=== PATIENT | male | born 1940 | race Caucasian/White ===

== ENCOUNTER 2020-05-15 15:01 | Outpatient (REF) | payer MEDICARE, SELFPAY ==
[2020-05-15 16:35] LABS: Estimated Average Glucose 134 mg/dL; Hemoglobin A1c % 6.3 %
[2020-05-15 17:09] LABS: Alanine Aminotransferase 14 U/L (0-40); Albumin Level 4.2 g/dL (3.5-5.0); Alkaline Phosphatase 62 U/L (39-117); Aspartate Amino Transferase 12 U/L (5-37); Bilirubin Direct 0.2 mg/dL (0.0-0.5); Bilirubin Total 0.4 mg/dL (0.0-1.0); Cholesterol 142 mg/dL; Glucose Fasting 117 mg/dL (60-99); HDL Cholesterol 42 mg/dL; LDL Cholesterol Calculated 67 mg/dl; Total Protein 7.2 g/dL (6.5-8.0); Triglycerides 165 mg/dL
[2020-05-15 17:29] LABS: Reflex LDLD? No
== END 2020-05-15 15:02 | disposition home or self-care (01) ==
LOC: HO.HMGCLDS 15:01
PROVIDERS: PCP Internal Medicine; Visit Provider Internal Medicine
DX: E11.9 Type 2 diabetes mellitus without complications (principal); D50.9 Iron deficiency anemia, unspecified; E55.9 Vitamin D deficiency, unspecified
CPT/HCPCS: 80061; 80076; 82947; 83036

== ENCOUNTER 2021-03-06 12:29 | Outpatient (REF) | payer MEDICARE, SELFPAY ==
[2021-03-06 13:48] LABS: MANUAL DIFF FLAG NO
[2021-03-06 13:51] LABS: Appearance Urine CLEAR; Color Urine YELLOW; Glucose Urine UA NEG (NEG); Leukocyte Esterase Urine NEG (NEG); Nitrite Urine NEG (NEG); PH 6.5 (5.0-8.0); Specific Gravity - Urine 1.015 (1.005-1.025); Urine Blood NEG (NEG); Urine Ketones NEG (NEG); Urine Protein TRACE MG/DL (NEG-TRACE)
[2021-03-06 13:58] LABS: Basophils Absolute Auto 0.1 X10*3/uL (0.0-0.2); Basophils Percent Auto 0.9 % (0-2); Eosinophils Absolute Auto 0.3 X10*3/uL (0.0-0.4); Eosinophils Percent Auto 4.8 % (0-4); Hematocrit 36.6 % (42-52); Hemoglobin 11.8 g/dl (14.0-18.0); Imm Gran Abs Auto 0.02 X10*3/uL (0.00-0.03); Imm Gran Pct Auto 0.3 % (0.0-0.4); Lymphocytes Absolute Auto 1.6 X10*3/uL (1.2-4.9); Lymphocytes Percent Auto 27.4 % (20-40); Mean Corpuscular HGB Conc 32.2 g/dl (31.0-36.0); Mean Corpuscular Hemoglobin 31.4 pg (27.0-33.0); Mean Corpuscular Volume 97.3 fL (80-98); Mean Platelet Volume 11.6 fL (9.4-12.4); Monocytes Absolute Auto 0.4 X10*3/uL (0.1-1.2); Monocytes Percent Auto 7.5 % (2-11); Neutrophils Absolute Auto 3.5 X10*3/uL (2.0-8.3); Neutrophils Percent Auto 59.1 % (45-73); Platelet Count 204 X10*3/uL (160-400); Red Blood Count 3.76 X10*6/uL (4.60-5.80); Red Cell Distribution Width 14.1 % (11.0-16.0); White Blood Count 5.9 X10*3/uL (4.8-10.8)
[2021-03-06 14:21] LABS: Alanine Aminotransferase 13 U/L (0-40); Albumin Level 4.2 g/dL (3.5-5.0); Alkaline Phosphatase 72 U/L (39-117); Anion Gap 14 (12-20); Aspartate Amino Transferase 13 U/L (5-37); Bilirubin Total 0.5 mg/dL (0.0-1.0); Blood Urea Nitrogen 12 mg/dL (9-16); Calcium 9.7 mg/dL (8.4-10.2); Carbon Dioxide 26 mmol/L (22-29); Chloride 106 mmol/L (96-108); Cholesterol 141 mg/dL; Estimated Average Glucose 140 mg/dL; Estimated Glomerular Filt Rate > 60; Glucose Fasting 145 mg/dL (60-99); HDL Cholesterol 41 mg/dL; Hemoglobin A1c % 6.5 %; Iron 57 mcg/dL (45-160); LDL Cholesterol Calculated 78 mg/dl; Percent Iron Saturation 15 % (15-50); Potassium 5.3 mmol/L (3.3-5.1); Sodium 141 mmol/L (135-145); Total Iron Binding Capacity 384 mcg/dL (228-428); Total Protein 7.1 g/dL (6.5-8.0); Triglycerides 112 mg/dL; Unsaturated Iron Binding 327 ug/dL
[2021-03-06 14:27] LABS: Creatinine Urine 67.77 mg/dL; Microalbum/Creatinine Ratio Ur 166.7 ug/mg cr
[2021-03-06 14:45] LABS: PSA,Total (Free>4and<10) 1.48 ng/mL (0.00-4.00); Vitamin D 25-OH Total 51.6 ng/mL (>30)
[2021-03-06 14:55] LABS: Folate 12.4 ng/mL (> or = 4.0); Vitamin B12 742 pg/mL (200-900)
== END 2021-03-06 12:30 | disposition home or self-care (01) ==
LOC: HO.HMGCLDS 12:29
PROVIDERS: PCP Internal Medicine; Visit Provider Internal Medicine
DX: Z00.00 Encounter for general adult medical examination without abnormal findings (principal); Z12.5 Encounter for screening for malignant neoplasm of prostate; E53.8 Deficiency of other specified B group vitamins; E11.9 Type 2 diabetes mellitus without complications; I10 Essential (primary) hypertension; E55.9 Vitamin D deficiency, unspecified; E78.00 Pure hypercholesterolemia, unspecified; D50.9 Iron deficiency anemia, unspecified
CPT/HCPCS: 36415; 80053; 80061; 81003; 82043; 82306; 82607; 82746; 83036; 83540; 84153; 85025

== ENCOUNTER 2021-03-08 10:24 | Outpatient (REF) | payer MEDICARE, SELFPAY ==
[2021-03-08 10:59] LABS: Potassium 4.9 mmol/L (3.3-5.1)
== END 2021-03-08 10:25 | disposition home or self-care (01) ==
LOC: HO.LNP 10:24
PROVIDERS: Visit Provider Internal Medicine
DX: E87.5 Hyperkalemia (principal)
CPT/HCPCS: 84132

== ENCOUNTER 2021-08-09 15:25 | Outpatient (REF) | payer MEDICARE, SELFPAY ==
[2021-08-09 16:02] LABS: Thyroid Stimulating Hormone 3.84 uIU/mL (0.32-4.0)
== END 2021-08-09 15:26 | disposition home or self-care (01) ==
LOC: HO.LNP 15:25
PROVIDERS: Visit Provider Internal Medicine
DX: R00.1 Bradycardia, unspecified (principal)
CPT/HCPCS: 84443

== ENCOUNTER 2021-09-03 12:42 | Outpatient (REF) | payer MEDICARE, SELFPAY ==
[2021-09-03 13:44] LABS: MANUAL DIFF FLAG NO
[2021-09-03 13:57] LABS: Basophils Absolute Auto 0.1 X10*3/uL (0.0-0.2); Basophils Percent Auto 0.9 % (0-2); Eosinophils Absolute Auto 0.1 X10*3/uL (0.0-0.4); Eosinophils Percent Auto 2.1 % (0-4); Hematocrit 39.2 % (42.0-52.0); Hemoglobin 12.6 g/dl (14.0-18.0); Imm Gran Abs Auto 0.03 X10*3/uL (0.00-0.03); Imm Gran Pct Auto 0.5 % (0.0-0.4); Lymphocytes Absolute Auto 1.4 X10*3/uL (1.2-4.9); Lymphocytes Percent Auto 24.2 % (20-40); Mean Corpuscular HGB Conc 32.1 g/dl (31.0-36.0); Mean Corpuscular Hemoglobin 31.5 pg (27.0-33.0); Mean Platelet Volume 11.7 fL (9.4-12.4); Monocytes Absolute Auto 0.4 X10*3/uL (0.1-1.2); Monocytes Percent Auto 7.2 % (2-11); Neutrophils Absolute Auto 3.8 x10*3/uL (2.0-8.3); Neutrophils Percent Auto 65.1 % (45-73); Platelet Count 201 X10*3/uL (160-400); Red Cell Distribution Width 14.3 % (11.0-16.0); White Blood Count 5.8 X10*3/uL (4.8-10.8)
[2021-09-03 14:10] LABS: Alanine Aminotransferase 15 U/L (0-40); Albumin Level 4.1 g/dL (3.5-5.0); Alkaline Phosphatase 65 U/L (39-117); Anion Gap 15 (12-20); Aspartate Amino Transferase 14 U/L (5-37); Bilirubin Total 0.8 mg/dL (0.0-1.0); Blood Urea Nitrogen 12 mg/dL (9-16); Calcium 9.8 mg/dL (8.4-10.2); Carbon Dioxide 25 mmol/L (22-29); Chloride 106 mmol/L (96-108); Estimated Glomerular Filt Rate > 60; Glucose Random 134 mg/dL (60-115); Magnesium 1.5 mg/dL (1.6-2.6); Potassium 5.2 mmol/L (3.3-5.1); Sodium 141 mmol/L (135-145)
== END 2021-09-03 12:43 | disposition home or self-care (01) ==
LOC: HO.HMGCLDS 12:42
PROVIDERS: PCP Internal Medicine; Visit Provider Internal Medicine
DX: I10 Essential (primary) hypertension (principal)
CPT/HCPCS: 36415; 80053; 83735; 85025

== ENCOUNTER 2021-11-01 11:29 | Outpatient (REF) | payer MEDICARE, SELFPAY ==
[2021-11-01 15:36] LABS: Magnesium 1.8 mg/dL (1.6-2.6)
== END 2021-11-01 11:30 | disposition home or self-care (01) ==
LOC: HO.HMGCLDS 11:29
PROVIDERS: Visit Provider Internal Medicine
DX: R79.0 Abnormal level of blood mineral (principal)
CPT/HCPCS: 36415; 83735

== ENCOUNTER → 2021-12-17 15:04 | Outpatient (BNVA) | payer MEDICARE, SELFPAY | PROVIDERS: PCP Internal Medicine; Referring Provider Internal Medicine; Visit Provider Internal Medicine Cardiovascular Disease | DX: I25.10 Atherosclerotic heart disease of native coronary artery without angina pectoris (principal); I10 Essential (primary) hypertension; R00.1 Bradycardia, unspecified; R07.9 Chest pain, unspecified; Z79.899 Other long term (current) drug therapy | CPT/HCPCS: 99202 ==

== ENCOUNTER → 2022-03-07 11:37 | Outpatient (REF) | payer MEDICARE, SELFPAY ==
--- NOTE | 2022-03-07 13:05 | CA_ITS ---
Transthoracic Echocardiogram Patient (Last, First, Middle): Noé Cancino E Gender: Male Date of : 1940 Age: 81 Procedure Date: 03/07/2022 Procedure Type: Transthoracic Echocardiogram Location: OP Height: 167.64 cm Weight: 86.18 kg BSA: 1.96 m2 Heart Rate: 77 bpm BP: 136 / 80 mmHg Automatic Pinsetter Mechanic: SB Referring MD: Jamey Rich MD Symptoms: I25.10 - Atherosclerotic heart disease of [place] coronary artery without... Study Quality: Adequate ECG Rhythm: Sinus Conclusions: - Normal left ventricular cavity size. The left ventricular systolic function is hyperdynamic. The visually estimated ejection fraction is >70%. - E/E prime ratio is between 8 and 15 consistent with indeterminate filling pressures. There is moderate septal asymmetric hypertrophy. Low global longitudinal strain at -14%. - Normal right ventricular cavity size and systolic function. - There is mild dilatation of the ascending aorta measuring 3.50 cm. Findings Left Ventricle Normal left ventricular cavity size. The left ventricular systolic function is hyperdynamic. The visually estimated ejection fraction is >70%. There is no evidence of regional wall motion abnormalities. Abnormal diastolic function is noted. Spectral Doppler is indicative of an impaired relaxation filling pattern. E/E prime ratio is between 8 and 15 consistent with indeterminate filling pressures. There is moderate septal asymmetric hypertrophy. Low global longitudinal strain at -14%. Right Ventricle Normal right ventricular cavity size and systolic function. Atria The left atrium is normal in size. The atrial septum has a dumbell appearance. The right atrium is normal in size. Aortic Valve Normal aortic valve structure and function. There is no aortic valve stenosis. There is no aortic valve regurgitation. Mitral Valve There is mild mitral annular calcification. There is no mitral valve regurgitation. There is no mitral valve stenosis. Pulmonic Valve The pulmonic valve is likely normal. Tricuspid Valve Normal tricuspid valve structure and function. There is trace tricuspid valve regurgitation. Tricuspid regurgitation envelope is inadequate for calculation of right ventricular systolic pressure. Normal right atrial pressure. Great Vessels There is mild dilatation of the ascending aorta measuring 3.50 cm. The visualized portions of the pulmonary artery and branches are normal. Venous The inferior vena cava is normal in size and collapses greater than 50% with inspiration. Pericardium/Pleural Prominent epicardial adipose tissue noted. There is no evidence of pericardial effusion. Prior Study Comparison No prior study available for comparison. Measurements 2D Linear Measurements IVSd: 1.44 0.6-0.9/0.6-1.0 cm LVIDd: 4.13 3.9-5.3/4.2-5.9 cm LVIDd Index: 2.11 2.4-3.2/2.2-3.1 cm/m2 LVIDs: 2.47 2.0-3.6 cm LVPWd: 0.72 0.7-1.1 cm LA Diam: 4.10 2.7-3.8/3.0-4.0 cm LAIDs Index: 2.09 1.5-2.3 cm/m2 LV Mass: 185.30 67-162/88-224 g LV Mass Index: 94.54 43-95/49-115 g/m2 LVOT Diam: 2.00 3.0+(-)1.3 cm 2D Systolic Function EF 4C: 58.70 >55% Mitral Valve MV Pk E: 0.58 MV PK A: 0.73 MV Decel Time: 179.00 E/A: 0.80 E'Lateral: 7.51 E'Medial: 5.11 E/E' Med: 11.40 E/E' Lat: 7.80 PHT: 52.00 MVA PHT: 4.23 Decel [place]: 3.26 Aortic Valve AoV Pk Garry: 1.43 AoV Mn Garry: 0.92 AoV VTI: 0.26 AoV Pk Grad: 8.00 Aov Mn Grad: 4.00 MEGAN Cont.VTI: 2.46 LVOT LVOT Pk Garry: 1.14 LVOT Mn Garry: 0.77 LVOT VTI: 0.20 LVOT Pk Grad: 5.00 LVOT Mn Grad: 3.00 LVOT Diam: 2.00 LVOT Area: 3.14 Diastolic Function MV Pk E: 0.58 MV Pk A: 0.73 E/A: 0.80 E'Medial: 5.11 E/E' Med: 11.40 E' Laterial: 7.51 E/E' Lat: 7.80 Right Ventricle TAPSE (mm): 14.70 TVS' Garry: 14.30 Tricuspid Valve RA Press: 3.00 Great Vessels Aorta Sinus of Valsalva: 3.30 2.0-3.5 cm Ao Asc: 3.50 2.1-3.4 cm Pulmonary Valve PV Pk Garry: 1.22 Peak PV Grad: 6.00 Updated in Other Vendor System with Status of Final Shaun Parker MD electronically signed on 03/10/2022 1:22:43 PM with status of Final
[2022-03-07 13:57] LABS: MANUAL DIFF FLAG NO
[2022-03-07 14:07] LABS: Basophils Absolute Auto 0.1 X10*3/uL (0.0-0.2); Basophils Percent Auto 0.9 % (0-2); Eosinophils Absolute Auto 0.2 X10*3/uL (0.0-0.4); Hematocrit 39.3 % (42.0-52.0); Hemoglobin 12.9 g/dl (14.0-18.0); Imm Gran Abs Auto 0.02 X10*3/uL (0.00-0.03); Imm Gran Pct Auto 0.3 % (0.0-0.4); Lymphocytes Absolute Auto 1.5 X10*3/uL (1.2-4.9); Lymphocytes Percent Auto 22.2 % (20-40); Mean Corpuscular HGB Conc 32.8 g/dl (31.0-36.0); Mean Corpuscular Volume 94.5 fL (80.0-98.0); Mean Platelet Volume 11.1 fL (9.4-12.4); Monocytes Absolute Auto 0.5 X10*3/uL (0.1-1.2); Monocytes Percent Auto 6.9 % (2-11); Neutrophils Absolute Auto 4.5 x10*3/uL (2.0-8.3); Neutrophils Percent Auto 66.7 % (45-73); Platelet Count 255 X10*3/uL (160-400); Red Blood Count 4.16 X10*6/uL (4.60-5.80); White Blood Count 6.7 X10*3/uL (4.8-10.8)
[2022-03-07 14:07] LABS: Appearance Urine Clear; Color Urine Yellow; Glucose Urine UA Negative (Negative); Leukocyte Esterase Urine Negative (Negative); Nitrite Urine Negative (Negative); PH 5.5 (5.0-9.0); Specific Gravity - Urine 1.015 (1.005-1.025); UMIC TRIGGER UA YES; Urine Blood Negative (Negative); Urine Ketones Negative (Negative); Urine Protein 30 (1+) mg/dL (Neg-Trace)
[2022-03-07 14:10] LABS: Bacteria Urine None Seen (None Seen); Hyaline Casts Urine 0-2 /LPF (0-2); RBC Urine 0-2 /HPF (0-2); Squamous Epithelial Cell Urine 0-2 /HPF (0-2); WBC Urine 0-5 /HPF (0-5)
[2022-03-07 14:16] LABS: Estimated Average Glucose 154 mg/dL
[2022-03-07 14:24] LABS: Alanine Aminotransferase 14 U/L (0-40); Albumin Level 4.3 g/dL (3.5-5.0); Alkaline Phosphatase 81 U/L (39-117); Anion Gap 15 (12-20); Aspartate Amino Transferase 13 U/L (5-37); Bilirubin Total 0.5 mg/dL (0.0-1.0); Blood Urea Nitrogen 18 mg/dL (9-16); Calcium 9.3 mg/dL (8.4-10.2); Carbon Dioxide 22 mmol/L (22-29); Chloride 106 mmol/L (96-108); Cholesterol 141 mg/dL; Estimated Glomerular Filt Rate > 60; Glucose Fasting 160 mg/dL (60-99); HDL Cholesterol 49 mg/dL; Iron 56 mcg/dL (45-160); LDL Cholesterol Calculated 75 mg/dl; Percent Iron Saturation 13 % (15-50); Potassium 4.4 mmol/L (3.3-5.1); Sodium 139 mmol/L (135-145); Total Iron Binding Capacity 439 mcg/dL (228-428); Total Protein 7.3 g/dL (6.5-8.0); Triglycerides 89 mg/dL; Unsaturated Iron Binding 383 ug/dL
[2022-03-07 14:30] LABS: Creatinine Urine 98.33 mg/dL; Microalbum/Creatinine Ratio Ur 171.8 ug/mg cr
[2022-03-07 14:46] LABS: PSA,Total (Free>4and<10) 1.28 ng/mL (0.00-4.00); Vitamin D 25-OH Total 51.5 ng/mL (>30)
[2022-03-07 14:51] LABS: Folate 11.2 ng/mL (> or = 4.0); Vitamin B12 893 pg/mL (200-900)
== END ==
LOC: HO.CARD 11:37
PROVIDERS: Absent Provider Internal Medicine; PCP Internal Medicine; Visit Provider Internal Medicine Cardiovascular Disease
DX: Z00.00 Encounter for general adult medical examination without abnormal findings (principal); Z12.5 Encounter for screening for malignant neoplasm of prostate; I25.10 Atherosclerotic heart disease of native coronary artery without angina pectoris; I10 Essential (primary) hypertension; E11.9 Type 2 diabetes mellitus without complications; E55.9 Vitamin D deficiency, unspecified; E78.00 Pure hypercholesterolemia, unspecified; D50.9 Iron deficiency anemia, unspecified; E53.8 Deficiency of other specified B group vitamins
CPT/HCPCS: 36415; 80053; 80061; 81001; 82043; 82306; 82607; 82746; 83036; 83540; 84153; 85025; 93306; 93356

== ENCOUNTER → 2022-04-02 15:03 | Outpatient (REF) | payer MEDICARE, SELFPAY ==
--- NOTE | 2022-04-02 15:06 | HM_ITS ---
Conclusion: 1. Patient was monitored for total period of 2 days and 23 hours 2. Baseline was normal sinus rhythm with first-degree AV block with average heart rate of 63 beats per minute 3. Frequent bradycardia with heart rate below 60 beats per minute 31% of the time 4. No significant pauses noted 5. Second-degree AV block noted, on reviewing the strip appears to be Mobitz type 1 second-degree AV block with intermittent 2:1 av block all suggestive of AV adelfo block 6. Rare ectopy noted 7. No patient reported events MTDD
== END ==
LOC: HO.CARD 15:03
PROVIDERS: PCP Internal Medicine; Visit Provider Internal Medicine Cardiovascular Disease
DX: R00.1 Bradycardia, unspecified (principal)
CPT/HCPCS: 93242

== ENCOUNTER → 2022-04-15 15:37 | Outpatient (BNVA) | payer MEDICARE, SELFPAY | PROVIDERS: PCP Internal Medicine; Visit Provider Internal Medicine Cardiovascular Disease | DX: I25.10 Atherosclerotic heart disease of native coronary artery without angina pectoris (principal); R00.1 Bradycardia, unspecified | CPT/HCPCS: 99212 ==

== ENCOUNTER 2022-06-13 11:42 | Outpatient (REF) | payer MEDICARE, SELFPAY ==
[2022-06-13 14:48] LABS: Estimated Average Glucose 166 mg/dL; Hemoglobin A1c % 7.4 %
[2022-06-13 14:54] LABS: Magnesium 1.9 mg/dL (1.6-2.6)
== END 2022-06-13 11:43 | disposition home or self-care (01) ==
LOC: HO.HMGCLDS 11:42
PROVIDERS: Visit Provider Internal Medicine
DX: E11.9 Type 2 diabetes mellitus without complications (principal); E53.8 Deficiency of other specified B group vitamins
CPT/HCPCS: 36415; 83036; 83735

== ENCOUNTER 2022-12-18 15:08 | Outpatient (AMB) | payer MEDICARE, SELFPAY ==
--- NOTE | 2022-12-18 15:15 | A.OFFVIS_ITS ---
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 He says when he over exerts himself in the yd he does get anginal symptoms and he takes sublingual nitroglycerin with immediate symptom relief. He does not CT symptoms at rest. There is no crescendo pattern to his symptoms. He can manage and live his life without any restricting anginal symptoms. He denies any lightheadedness, syncope. No tiredness. No heart failure symptoms. Takes all his medications. [facility] Medical History CAD (coronary artery disease) Diabetes HTN (hypertension) Hyperlipidemia Surgical History Hx of heart bypass surgery S/P CABG x 2 Family History Father Stroke Mother No problems noted. Social History Patient Tobacco Use Status: Never used Tobacco Review of Systems Const Denies chills, Denies fatigue, Denies fever(s), Denies frequent falls, Denies weakness, Denies weight gain and Denies weight loss ENT Denies dizziness Card Denies chest pain, Denies leg edema, Denies lightheadedness, Denies palpitations, Denies dyspnea, Denies dyspnea on exertion, Denies orthopnea and Denies other (loss of consciousness) Resp Denies cough, Denies dyspnea and Denies dyspnea on exertion GI Denies hematochezia and Denies change in stool character Musc Denies abnormal gait, Denies muscle weakness, Denies numbness, Denies radiating pain into limb and Denies tingling Neuro Denies Abnormal speech present, Denies abnormal gait, Denies dizziness, Denies frequent falls, Denies numbness, Denies tingling and Denies weakness Endo Denies fatigue and Denies palpitations Physical Exam Vital Signs: Last Vital Signs Pulse 65 12/18/22 15:16 BP 130/76 12/18/22 15:16 BMI result Body Mass Index 28.2 Const General: cooperative, comfortable, no acute distress, well developed, alert, awake and well groomed Nutritional Appearance: well nourished and overweight Orientation/consciousness: patient oriented x3 Limitations: no limitations Neck Neck: Yes trachea midline, Yes supple and Yes no JVD Chest Chest palpation & inspection: other (Well-healed sternotomy scar) Resp Effort & Inspection: normal respiratory effort Auscultation: clear to auscultation bilaterally Cardio Jugular venous distension: no JVD Palpation: normal PMI Rate: regular rate Rhythm: abnormal rhythm with ectopic beats Heart sounds: S1 normal heart sound present, S2 normal heart sound present, no click, no gallops, Murmur heart sound present systolic and no rubs GI Auscultation: normal bowel sounds Neuro General: patient oriented x3 and no focal motor deficits Speech: No Abnormal speech present Extrem General: Yes no clubbing, cyanosis or edema Office Procedures EKG Details: EKG shows normal sinus rhythm first-degree AV block with nonspecific ST changes [id number], Complete Assessment & Plan Assessment & Plan (1) CAD (coronary artery disease): Code(s): I25.10 - Atherosclerotic heart disease of [place] coronary artery without angina pectoris Plan: CAD with remote coronary artery bypass grafting. He is currently having symptoms of exertional angina when he over does it. Recommend exercise myocardial perfusion imaging. Discuss the need for it. However he wants to consider it. Continue current medical therapy. Continue amlodipine as the up antianginal agent. Continue low-dose aspirin therapy. Currently on moderate dose statin therapy. Target goal LDL less than 70 mg/dL. He continues to use sublingual nitroglycerin as needed. Advised to call me with worsening symptoms. Advised to seek emergency care for symptoms at rest at all on relieving. 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 No symptoms related to it. No interventions are pacing therapy required. Avoid rate lowering medications. He is advised to call me with any worsening symptoms. Will follow up in the clinic in 1 year's time, sooner p.r.n.. Thank you for allowing me to partake in his care Coding Level of Care Code Est Pt Level 4 (27139) Diagnoses CAD (coronary artery disease) I25.10 Bradycardia R00.1 CPT Codes EKG - CPT: 42663-[id number], Complete ([id number])
[2022-12-18 15:16] VITALS: BP 130/76; PULSE 65; BMI 28.2
== END 2022-12-18 15:54 | disposition home or self-care (01) ==
PROVIDERS: PCP Internal Medicine; Referring Provider Internal Medicine; Visit Provider Internal Medicine Cardiovascular Disease
DX: I25.10 Atherosclerotic heart disease of native coronary artery without angina pectoris (principal); R00.1 Bradycardia, unspecified
CPT/HCPCS: 93010; 99214

== ENCOUNTER → 2022-12-18 15:08 | Outpatient (BNVA) | payer MEDICARE, SELFPAY | PROVIDERS: PCP Internal Medicine; Referring Provider Internal Medicine; Visit Provider Internal Medicine Cardiovascular Disease | DX: I25.10 Atherosclerotic heart disease of native coronary artery without angina pectoris (principal); R00.1 Bradycardia, unspecified | CPT/HCPCS: 93005; 99212 ==

== ENCOUNTER 2023-05-07 10:54 | Outpatient (REF) | payer MEDICARE, SELFPAY ==
[2023-05-07 11:00] LABS: MANUAL DIFF FLAG NO
[2023-05-07 12:11] LABS: Basophils Absolute Auto 0.1 X10*3/uL (0.0-0.2); Eosinophils Absolute Auto 0.3 X10*3/uL (0.0-0.4); Hematocrit 40.1 % (42.0-52.0); Hemoglobin 12.9 g/dl (14.0-18.0); Imm Gran Abs Auto 0.02 X10*3/uL (0.00-0.03); Imm Gran Pct Auto 0.3 % (0.0-0.4); Lymphocytes Absolute Auto 1.8 X10*3/uL (1.2-4.9); Lymphocytes Percent Auto 24.7 % (20-40); Mean Corpuscular HGB Conc 32.2 g/dl (31.0-36.0); Mean Corpuscular Hemoglobin 30.6 pg (27.0-33.0); Mean Corpuscular Volume 95.2 fL (80.0-98.0); Mean Platelet Volume 11.7 fL (9.4-12.4); Monocytes Absolute Auto 0.6 X10*3/uL (0.1-1.2); Monocytes Percent Auto 8.6 % (2-11); Neutrophils Absolute Auto 4.4 x10*3/uL (2.0-8.3); Neutrophils Percent Auto 61.4 % (45-73); Platelet Count 239 X10*3/uL (160-400); Red Blood Count 4.21 X10*6/uL (4.60-5.80); Red Cell Distribution Width 14.6 % (11.0-16.0); White Blood Count 7.2 X10*3/uL (4.8-10.8)
[2023-05-07 12:35] LABS: Cholesterol 131 mg/dL (<200); HDL Cholesterol 46 mg/dL (>40); LDL Cholesterol Calculated 61 mg/dL (<100); Triglycerides 121 mg/dL (<150)
[2023-05-07 12:42] LABS: Creatinine Urine 55.29 mg/dL; Microalbum/Creatinine Ratio Ur 273.1 ug/mg cr (<30)
[2023-05-07 12:46] LABS: Reflex LDLD? No
[2023-05-07 12:49] LABS: Appearance Urine Clear; Color Urine Yellow; Glucose Urine UA Negative (Negative); Leukocyte Esterase Urine Negative (Negative); Nitrite Urine Negative (Negative); UMIC TRIGGER UACC YES; Urine Blood Negative (Negative); Urine Ketones Negative (Negative); Urine Protein 30 (1+) mg/dL (Neg-Trace)
[2023-05-07 12:56] LABS: Alanine Aminotransferase 9 U/L (0-40); Alkaline Phosphatase 76 U/L (39-117); Anion Gap 15 (12-20); Aspartate Amino Transferase 14 U/L (5-37); Bacteria Urine None Seen (None Seen); Bilirubin Direct 0.2 mg/dL (0.0-0.5); Bilirubin Total 0.5 mg/dL (0.0-1.0); Blood Urea Nitrogen 13 mg/dL (9-16); Calcium 9.5 mg/dL (8.4-10.2); Carbon Dioxide 25 mmol/L (22-29); Chloride 106 mmol/L (96-108); Estimated Glomerular Filt Rate 60; Glucose Random 147 mg/dL (60-115); Hyaline Casts Urine 0-2 /LPF (0-2); Iron 52 mcg/dL (45-160); PSA,Total (Free>4and<10) 1.61 ng/mL (0.00-4.00); Percent Iron Saturation 16 % (15-50); Potassium 4.6 mmol/L (3.3-5.1); RBC Urine 0-2 /HPF (0-2); Sodium 141 mmol/L (135-145); Squamous Epithelial Cell Urine 0-2 /HPF (0-2); Total Iron Binding Capacity 329 mcg/dL (228-428); Total Protein 7.5 g/dL (6.5-8.0); Unsaturated Iron Binding 277 ug/dL; WBC Urine 0-5 /HPF (0-5)
[2023-05-07 13:13] LABS: Vitamin D 25-OH Total 65.1 ng/mL (>30)
== END 2023-05-07 10:55 | disposition home or self-care (01) ==
LOC: HO.LNP 10:54
PROVIDERS: Visit Provider Internal Medicine
DX: E11.9 Type 2 diabetes mellitus without complications (principal); I10 Essential (primary) hypertension; E55.9 Vitamin D deficiency, unspecified; E83.42 Hypomagnesemia; E78.00 Pure hypercholesterolemia, unspecified; D50.9 Iron deficiency anemia, unspecified; Z12.5 Encounter for screening for malignant neoplasm of prostate
CPT/HCPCS: 80053; 80061; 81001; 82043; 82248; 82306; 82570; 83540; 83735; 84153; 85025

== ENCOUNTER 2023-11-17 09:35 | Outpatient (REF) | payer MEDICARE, SELFPAY ==
[2023-11-17 13:32] LABS: Estimated Average Glucose 143 mg/dL; Hemoglobin A1c % 6.6 % (<6.0)
[2023-11-17 13:48] LABS: Alanine Aminotransferase 12 U/L (0-40); Albumin Level 4.1 g/dL (3.5-5.0); Alkaline Phosphatase 77 U/L (39-117); Aspartate Amino Transferase 14 U/L (5-37); Bilirubin Direct 0.2 mg/dL (0.0-0.5); Bilirubin Total 0.6 mg/dL (0.0-1.0); Cholesterol 129 mg/dL (<200); Glucose Fasting 136 mg/dL (60-99); HDL Cholesterol 46 mg/dL (>40); LDL Cholesterol Calculated 62 mg/dL (<100); Total Protein 7.6 g/dL (6.5-8.0); Triglycerides 109 mg/dL (<150)
[2023-11-17 14:48] LABS: Reflex LDLD? No
== END 2023-11-17 09:36 | disposition home or self-care (01) ==
LOC: HO.HMGCLDS 09:35
PROVIDERS: PCP Internal Medicine; Visit Provider Internal Medicine
DX: E11.9 Type 2 diabetes mellitus without complications (principal); E78.00 Pure hypercholesterolemia, unspecified
CPT/HCPCS: 36415; 80061; 80076; 82947; 83036

== ENCOUNTER 2023-11-26 14:40 | Outpatient (REF) | payer MEDICARE, SELFPAY ==
[2023-11-26 17:02] LABS: Vitamin B12 1247 pg/mL (200-900)
== END 2023-11-26 14:41 | disposition home or self-care (01) ==
LOC: HO.HMGCLDS 14:40
PROVIDERS: PCP Internal Medicine; Visit Provider Internal Medicine
DX: E53.8 Deficiency of other specified B group vitamins (principal)
CPT/HCPCS: 36415; 82607; 82746

== ENCOUNTER 2024-01-05 14:41 | Outpatient (AMB) | payer MEDICARE, SELFPAY ==
[2024-01-05 14:44] VITALS: BP 146/60; PULSE 49; BMI 27.6
--- NOTE | 2024-01-05 14:44 | A.OFFVIS_ITS ---
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 He does not get angina with his regular day-to-day activity. Takes all his medications. Recently said his blood pressure is elevated his amlodipine was increase to 10 mg. His last LDL 62 mg/dL. Denies any heart failure symptoms. Denies any lightheadedness, syncope. Denies any prolonged palpitation irregular heartbeat. Taking all his medications regularly. [facility] Medical History Hyperlipidemia Diabetes HTN (hypertension) CAD (coronary artery disease) Surgical History S/P CABG x 2 Hx of heart bypass surgery Family History Father Stroke Mother No problems noted. Social History Patient Tobacco Use Status: Never used Tobacco Review of Systems Const Denies chills, Denies fatigue, Denies fever(s), Denies frequent falls, Denies weakness, Denies weight gain and Denies weight loss ENT Denies dizziness Card Denies chest pain, Denies leg edema, Denies lightheadedness, Denies palpitations, Denies dyspnea and Denies dyspnea on exertion Resp Denies cough, Denies dyspnea and Denies dyspnea on exertion GI Denies hematochezia Musc Denies abnormal gait, Denies muscle weakness, Denies numbness, Denies radiating pain into limb and Denies tingling Neuro Denies Abnormal speech present, Denies abnormal gait, Denies dizziness, Denies frequent falls, Denies numbness, Denies tingling and Denies weakness Endo Denies fatigue and Denies palpitations Physical Exam Vital Signs: Last Vital Signs Pulse 49 L 01/05/24 14:44 BP 146/60 H 01/05/24 14:44 BMI result Body Mass Index 27.6 Const General: cooperative, comfortable, no acute distress, well developed, alert, awake and well groomed Nutritional Appearance: well nourished and overweight Orientation/consciousness: patient oriented x3 Limitations: no limitations Neck Neck: Yes trachea midline, Yes supple and Yes no JVD Chest Chest palpation & inspection: other (Well-healed sternotomy scar) Resp Effort & Inspection: normal respiratory effort Auscultation: clear to auscultation bilaterally Cardio Jugular venous distension: no JVD Palpation: normal PMI Rate: regular rate Rhythm: abnormal rhythm with ectopic beats Heart sounds: S1 normal heart sound present, S2 normal heart sound present, no click, no gallops, Murmur heart sound present systolic and no rubs GI Auscultation: normal bowel sounds Neuro General: patient oriented x3 and no focal motor deficits Speech: No Abnormal speech present Extrem General: Yes no clubbing, cyanosis or edema Office Procedures EKG Details: EKG shows sinus rhythm with Mobitz type 1 second-degree AV block with variable [place] interval. [id number], Complete Assessment & Plan Assessment & Plan (1) Bradycardia: Code(s): R00.1 - Bradycardia, unspecified Category: Medical Plan: Bradycardia with Mobitz type 1 second-degree AV block suggestive of AV adelfo level of abnormality. Current point time he has no symptoms and no indication for pacing therapy. Avoid rate lowering medications and him. (2) CAD (coronary artery disease): Code(s): I25.10 - Atherosclerotic heart disease of [place] coronary artery without angina pectoris Category: Medical Plan: CAD with remote coronary artery bypass grafting with current symptoms of angina which have been stable over the last year. He only gets them with heavy work. Very rarely has to use sublingual nitroglycerin. Currently taking amlodipine as an antianginal therapy. Doing well from that perspective. His LDL is well optimized on current statin therapy. Continue low-dose aspirin therapy. Continue maintain activity level as tolerated. Advised to call me with worsening symptoms. (3) HTN (hypertension): Code(s): I10 - Essential (primary) hypertension Category: Medical Plan: Hypertension which is well optimized currently on amlodipine therapy after re measurement. Advised to monitor blood pressure intermittently at home. Low- salt diet was discussed. Stress mitigation strategies was discussed. Continue current amlodipine therapy. Will follow up in the clinic in 1 year's time, sooner p.r.n.. Thank you for allowing me to partake in his care Coding Level of Care Code Est Pt Level 4 (55591) Diagnoses Bradycardia R00.1 CAD (coronary artery disease) I25.10 HTN (hypertension) I10 CPT Codes EKG - CPT: 09412-[id number], Complete ([id number])
[2024-01-05 15:00] VITALS: BP 126/50
== END 2024-01-05 15:02 | disposition home or self-care (01) ==
PROVIDERS: PCP Internal Medicine; Visit Provider Internal Medicine Cardiovascular Disease
DX: R00.1 Bradycardia, unspecified (principal); I25.10 Atherosclerotic heart disease of native coronary artery without angina pectoris; I10 Essential (primary) hypertension
CPT/HCPCS: 93010; 99214

== ENCOUNTER → 2024-01-05 14:41 | Outpatient (BNVA) | payer MEDICARE, SELFPAY | PROVIDERS: PCP Internal Medicine; Visit Provider Internal Medicine Cardiovascular Disease | DX: R00.1 Bradycardia, unspecified (principal); I25.10 Atherosclerotic heart disease of native coronary artery without angina pectoris; I10 Essential (primary) hypertension; R94.31 Abnormal electrocardiogram [ECG] [EKG]; I44.1 Atrioventricular block, second degree | CPT/HCPCS: 93005; 99212 ==

== ENCOUNTER 2024-01-22 14:48 | Outpatient (REF) | payer MEDICARE, SELFPAY ==
[2024-01-22 17:00] LABS: Free T4 (Free Thyroxine) 0.81 ng/dL (0.71-1.85); Thyroid Stimulating Hormone 3.33 uIU/mL (0.32-4.0)
[2024-01-24 04:13] LABS: DHEA Sulfate 62 mcg/dL (3-225); Triiodothyronine T3 Free 2.8 pg/mL (2.3-4.2)
[2024-01-27 20:03] LABS: Testosterone, Free 36.1 pg/mL (30.0-135.0); Testosterone, Total 435 ng/dL (250-1100)
== END 2024-01-22 14:49 | disposition home or self-care (01) ==
LOC: HO.HMGCLDS 14:48
PROVIDERS: PCP Internal Medicine; Visit Provider Family Medicine
DX: E29.1 Testicular hypofunction (principal); R53.83 Other fatigue
CPT/HCPCS: 36415; 82627; 84402; 84403; 84439; 84443; 84481

== ENCOUNTER 2024-05-05 09:28 | Outpatient (REF) | payer MEDICARE, SELFPAY ==
[2024-05-05 13:29] LABS: MANUAL DIFF FLAG NO
[2024-05-05 13:40] LABS: Appearance Urine Cloudy; Color Urine Yellow; Glucose Urine UA Negative (Negative); Leukocyte Esterase Urine Negative (Negative); Nitrite Urine Negative (Negative); UMIC TRIGGER UACC YES; Urine Blood Negative (Negative); Urine Ketones Negative (Negative); Urine Protein 100 (2+) mg/dL (Neg-Trace)
[2024-05-05 13:44] LABS: Basophils Absolute Auto 0.1 X10*3/uL (0.0-0.2); Eosinophils Absolute Auto 0.3 X10*3/uL (0.0-0.4); Eosinophils Percent Auto 3.9 % (0-4); Hematocrit 36.2 % (42.0-52.0); Hemoglobin 11.7 g/dl (14.0-18.0); Imm Gran Abs Auto 0.03 X10*3/uL (0.00-0.03); Imm Gran Pct Auto 0.4 % (0.0-0.4); Lymphocytes Absolute Auto 1.4 X10*3/uL (1.2-4.9); Lymphocytes Percent Auto 19.9 % (20-40); Mean Corpuscular HGB Conc 32.3 g/dl (31.0-36.0); Mean Corpuscular Volume 92.8 fL (80.0-98.0); Mean Platelet Volume 11.2 fL (9.4-12.4); Monocytes Absolute Auto 0.5 X10*3/uL (0.1-1.2); Monocytes Percent Auto 7.3 % (2-11); Neutrophils Absolute Auto 4.7 x10*3/uL (2.0-8.3); Neutrophils Percent Auto 67.5 % (45-73); Platelet Count 253 X10*3/uL (160-400); Red Cell Distribution Width 15.2 % (11.0-16.0)
[2024-05-05 13:48] LABS: Bacteria Urine None Seen (None Seen); Hyaline Casts Urine 0-2 /LPF (0-2); RBC Urine 0-2 /HPF (0-2); Squamous Epithelial Cell Urine 0-2 /HPF (0-2); WBC Urine 0-5 /HPF (0-5)
[2024-05-05 13:50] LABS: Estimated Average Glucose 146 mg/dL; Hemoglobin A1C 150.7117 umol/L; Hemoglobin A1c % 6.7 % (<6.0); Total Hemoglobin (HGBA1C) 3012.1795 umol/L
[2024-05-05 14:03] LABS: Alanine Aminotransferase 10 U/L (0-40); Albumin Level 3.7 g/dL (3.5-5.0); Alkaline Phosphatase 69 U/L (39-117); Anion Gap 10 (12-20); Aspartate Amino Transferase 17 U/L (5-37); Bilirubin Direct 0.2 mg/dL (0.0-0.5); Bilirubin Total 0.5 mg/dL (0.0-1.0); Blood Urea Nitrogen 15 mg/dL (9-16); Calcium 9.1 mg/dL (8.4-10.2); Carbon Dioxide 26 mmol/L (22-29); Chloride 110 mmol/L (96-108); Cholesterol 118 mg/dL (<200); Estimated Glomerular Filt Rate > 60; Glucose Fasting 141 mg/dL (60-99); HDL Cholesterol 46 mg/dL (>40); Iron 61 mcg/dL (45-160); LDL Cholesterol Calculated 56 mg/dL (<100); Magnesium 1.8 mg/dL (1.6-2.6); Percent Iron Saturation 21 % (15-50); Potassium 4.6 mmol/L (3.3-5.1); Sodium 141 mmol/L (135-145); Total Iron Binding Capacity 292 mcg/dL (228-428); Total Protein 7.3 g/dL (6.5-8.0); Triglycerides 84 mg/dL (<150); Unsaturated Iron Binding 231 ug/dL
[2024-05-05 14:12] LABS: PSA,Total (Free>4and<10) 2.39 ng/mL (0.00-4.00)
[2024-05-05 14:19] LABS: Vitamin D 25-OH Total 45.6 ng/mL (>30)
[2024-05-05 14:28] LABS: Folate 6.1 ng/mL (> or = 4.0); Vitamin B12 875 pg/mL (200-900)
[2024-05-05 14:32] LABS: Creatinine Urine 96.62 mg/dL
[2024-05-05 14:44] LABS: Microalbum/Creatinine Ratio Ur 1411.7 ug/mg cr (<30)
[2024-05-05 17:47] LABS: Reflex LDLD? No
== END 2024-05-05 09:29 | disposition home or self-care (01) ==
LOC: HO.HMGCLDS 09:28
PROVIDERS: PCP Internal Medicine; Visit Provider Internal Medicine
DX: E53.8 Deficiency of other specified B group vitamins (principal); E11.9 Type 2 diabetes mellitus without complications; I10 Essential (primary) hypertension; E78.00 Pure hypercholesterolemia, unspecified; D50.9 Iron deficiency anemia, unspecified; E83.42 Hypomagnesemia; Z12.5 Encounter for screening for malignant neoplasm of prostate
CPT/HCPCS: 36415; 80053; 80061; 80076; 81001; 82043; 82248; 82306; 82570; 82607; 82746; 83036; 83540; 83735; 84153; 85025

== ENCOUNTER 2024-11-14 12:17 | Outpatient (REF) | payer MEDICARE, SELFPAY ==
--- OUTSIDE RECORDS SUMMARY | 2024-07-14 04:31 | XMS_ITS ---
Author Organization Lev Aguayo MD Address [address] [place] [phone] Care Team Providers Care Grading Clerk Name Role Phone Lev Aguayo Primary Care Provider REASON FOR VISIT RF Metformin Medications Medication SIG (Take, Route, Fr equency, Duration) Notes Start Date End Date Status metFORMIN HCl 500 MG 2 tabs Orally twice a day for 90 days Active Encounters Encounter Location Date Provider Diagnosis Lev Aguayo MD [address] [facility] [address] [place] [phone] 07/14/2024 Lev Aguayo Type 2 diabetes mellitus without complication E11.9 Assessments Encounter Date Diagnosis (ICD Code) Assessment Notes Treatment Notes Treatment Clinical Notes Section Notes 07/14/2024 Type 2 diabetes mellitus without complication (ICD-10 - E11.9) Plan Of Treatment Medication Medication Name Sig Start Date Stop Date Notes metFORMIN HCl 500 MG 2 tabs Orally twice a day for 90 days Next Appt Details Provider Name:Lev cadena, 11/22/2024 02:00:00 PM, [address] [place] [address], [address], [phone], Provider Name:Lev cadena, 05/16/2025 07:45:00 AM, [address] [place] [address], [address], [phone], Provider Name:Lev Kan darrinr, 05/26/2025 02:30:00 PM, [address], [address], [place], [phone], Progress Notes * Noé CANCINO EDOB:1940 (84 yo M)Acc No.[id number]:07/14/2024 Patient: Noé JARRELL :1940 A ge:84 Y S ex:Male Address:[address] [place] [phone] * Refills Refill metFORMIN HCl Tablet, 500 MG, Orally, 360 Tablet, 2 tabs, twice a day, 90 days, Refills=3 * true * Date: Generated for Jefferson isabel/Calos/eTeloisasmitting on: 0 11/14/2024 12:50 PM EDT
--- OUTSIDE RECORDS SUMMARY | 2024-11-14 12:50 | XMS_ITS | Clinical Summary ---
Author Organization [facility]. Address [address] [place] [phone] Phone Care Team Providers Care Developmental Mathematics Professor Name Role Phone Lev Aguayo MD Primary Care Provider [phone] Allergies No known active allergies Medications atorvastatin (LIPITOR) 20 MG tablet Take 20 mg by mouth 1 (one) time each day at the same time Active metFORMIN (GLUCOPHAGE) 500 MG tablet Take 500 mg by mouth in the morning and 500 mg in the evening. Take with meals. Active nitroglycerin (NITROSTAT) 0.[address] 0.4 mg under the tongue every 5 (five) minutes if needed Active Diclofenac Sodium XR (VOTAREN XR) 100 MG 24 hr tablet Take 100 mg by mouth 1 (one) time each day Active cyanocobalamin 500 MCG tablet Take 500 mcg by mouth 1 (one) time each day Active Cholecalciferol (Vitamin D) 50 MCG (2000 UT) capsule Take 1 capsule by mouth 1 (one) time each day Active losartan (Cozaar) 25 MG tablet Take 1 tablet (25 mg total) by mouth 1 (one) time each day 30 tablet 11 07/20/2024 Active amLODIPine (NORVASC) 5 MG tablet Take 1 tablet (5 mg total) by mouth 1 (one) time each day 90 tablet 3 07/20/2024 Active Active Problems Problem Noted Date Diagnosed Date Proteinuria, not otherwise specified 07/19/2024 Hypertension 07/19/2024 Diabetes mellitus, not otherwise specified 07/19 Encounters Date Type Department Care Team Description 09/19/2024 Orders Only [facility] [place] [place] [facility] [address] [facility] [address] [place] [phone] Shane Wan MD Proteinuria, not otherwise specified; Hypertension; Diabetes mellitus, not otherwise specified (HCC) from Last 3 Months Family History Medical History Relation Comments Stroke Brother Stroke Father Relation Status Comments Brother Father Mother Social History Tobacco Use Types Packs/Day Years Used Date Smoking Tobacco: Never Smokeless Tobacco: Never Tobacco Cessation:Counseling Given: Not Answered Alcohol Use Standard Drinks/Week Comments Yes 0 (1 standard drink = 0.6 oz pur e alcohol) ocassionally Sex and Gender Information Value Date Recorded Sex Assigned at Not on file Legal Sex Male 3:33 PM EST Gender Identity Not on file Sexual Orientation Not on file Last Filed Vital Signs Vital Sign Reading Time Taken Comments Blood Pressure 174/60 07/20/2024 10:56 AM EST Pulse 60 07/20/2024 10:56 AM EST Temperature - - Respiratory Rate - - Oxygen Saturation 97% 07/20/2024 10:56 AM EST Inhaled Oxygen Concentration - - Weight 74.4 kg (164 lb) 07/20/2024 10:56 AM EST Height 167.6 cm (5' 6 ) 07/20/2024 10:56 AM EST Body Mass Index 26.47 07/20/2024 10:56 AM EST Plan of Treatment Health Maintenance Due Date Last Done Comments Pneumococcal Vaccine: 50+ Ye ars (1 of 2 - PCV) 1959 Diabetes: Ophthalmology Exam 05/31/2024 Diabetes: Pedal Pulse Checked 05/31/2024 Diabetes: Sensory Foot Exam 05/31/2024 Diabetes: Visual Foot Exam 05/31/2024 Diabetes: Hemoglobin A1C 08/03/2024 05/05/2024 Influenza Vaccine (Season Ended) 2025 Hepatitis B Vaccine Aged Out No longe r eligible based on patient's age to complete this topic Procedures Procedure Name Priority Date/Time Associated Diagnosis Comments EXT RESULT ENTRY Routine 05/05/2024 from Last 3 Months or Most Recently Relevant to Health Maintenance Results * (ABNORMAL) EXT RESULT ENTRY (05/05/2024) WBC 7.0 3.3 - 10.0 10*3/ML Red Blood Cell Count 3.90 Hemoglobin 11.7(A) 13.5 - 17.5 Hematocrit 36.2(A) 41.0 - 53.0 Platelets 253 150 - 399 10*3/UL MCV 92.8 82.0 - 108.0 Sodium 141 137 - 147 Potassium 4.6 3.4 - 5.5 Chloride 110.0(A) 99.0 - 108.0 Carbon Dioxide 26 mmol/L Anion Gap 10 <=30 MMOL/L Glucose 141 60 - 200 BUN 15 4 - 21 mg/dL Creatinine 0.89 0.60 - 1.30 mg/dL Total Protein 7.3 6.4 - 8.2 G/DL BUN/Creatinine Ratio . Albumin 3.7 3.5 - 5.0 g/dL Calcium 9.1 8.7 - 10.7 mg/dL eGFR Non-Afr [place]ese >60 Magnesium 1.8 1.6 - 2.4 Total Bilirubin 0.50 MG/DL Bilirubin Direct 0.2 ALT (SGPT) 10 U/L AST (SGOT) 17 U/L Alkaline Phosphatase 69 U/L Vitamin D, 25-OH, Total 45.6 ng/mL Hemoglobin A1C 6.7(A) 4.0 - 6.0 Triglycerides 84 Cholesterol, Total 118 HDL 46 mg/dL LDL-Calculated 56 05/05/2024 us Historical Provider LAB BLOOD ORDERABLES Arabella l Result from Last 3 Months or Most Recently Relevant to Health Maintenance Insurance [facility] Medicare Care Teams Developmental Mathematics Professor Relationship Specialty Start Date End Date Lev Aguayo MD [id number] [place], [place] PCP - General Internal Medicine 05/30/24
[2024-11-14 13:42] LABS: Estimated Average Glucose 134 mg/dL; Hemoglobin A1c % 6.3 % (<6.0)
[2024-11-14 14:15] LABS: Alanine Aminotransferase 14 U/L (0-40); Alkaline Phosphatase 77 U/L (39-117); Aspartate Amino Transferase 17 U/L (5-37); Bilirubin Direct 0.2 mg/dL (0.0-0.5); Bilirubin Total 0.4 mg/dL (0.0-1.0); Cholesterol 117 mg/dL (<200); Glucose Fasting 133 mg/dL (60-99); HDL Cholesterol 51 mg/dL (>40); LDL Cholesterol Calculated 55 mg/dL (<100); Triglycerides 57 mg/dL (<150)
[2024-11-14 14:37] LABS: Vitamin B12 785 pg/mL (200-900)
[2024-11-14 14:51] LABS: Reflex LDLD? No
== END 2024-11-14 12:18 | disposition home or self-care (01) ==
LOC: HO.HMGCLDS 12:17
PROVIDERS: PCP Internal Medicine; Visit Provider Internal Medicine
DX: E11.9 Type 2 diabetes mellitus without complications (principal); E78.00 Pure hypercholesterolemia, unspecified; E53.8 Deficiency of other specified B group vitamins
CPT/HCPCS: 36415; 80061; 80076; 82607; 82947; 83036